=== PATIENT | female | born 1985 | race Caucasian/White ===

== ENCOUNTER → 2017-03-02 | Outpatient (CLI) | payer OTHER ==
--- NOTE | 2017-03-08 07:10 | Diagnostic Imaging Report ---
EXAMINATION: MRI of the cervical spine without contrast HISTORY: Neck pain radiating into the left upper extremity with hand numbness for last 4 months COMPARISON: none. TECHNIQUE: Sagittal T1, T2, STIR; axial T2, gradient echo. FINDINGS: Curvature: Normal lordosis. Vertebrae: No evidence of neoplasm, infection, or fracture. Foramen magnum: No mass, Chiari malformation, or basilar invagination. Spinal Cord: Normal size and signal intensity. Soft Tissues: Unremarkable. Degenerative changes: Minimal symmetric disc bulges at C3-4, to C6-7, without evidence of disc herniations, no spinal canal or foraminal stenosis. No evidence of nerve root compression. IMPRESSION: No significant degenerative changes, particularly there are no disc herniations, spinal canal or foraminal stenosis. Unremarkable cervical spinal cord. Signed by: Dr. Eleanor Farias M.D. on 03/08/2017 7:06 AM
== END ==
LOC: MRI 15:55
PROVIDERS: ATTEND Internal Medicine
DX: M54.2 Cervicalgia (principal)
CPT/HCPCS: 72141